=== PATIENT | female | born 1975 | race Caucasian/White ===

== ENCOUNTER 2017-09-08 15:48 | Observation (INO) ==
[2017-09-08] MEDS ORDERED: PROMETHAZINE 25 MG/1 ML VIAL IM STA (17:03)
[2017-09-08] MEDS ORDERED: MEPERIDINE 50 MG/1 ML VIAL IM STA (17:03)
[2017-09-08] MEDS ORDERED: PROMETHAZINE 25 MG/1 ML VIAL ONE (17:27)
[2017-09-08] MEDS ORDERED: MEPERIDINE 25 MG/1 ML VIAL ONE (17:27)
[2017-09-08 18:11] LABS: Basophils # 0.1 10*3/uL (0.0-0.2); Basophils % 0.6 % (0.0-0.8); Eosinophils # 0.1 10*3/uL (0.0-0.87); Eosinophils % 1.3 % (0.00-10.9); Hematocrit 35.1 VOL% (35.7-47.0); Hemoglobin 11.9 GM/DL (12.0-16.0); Immature Granulocytes % 0.9 %; Immature Granulocytes Absolute 0.07 #; Lymphocytes # 2.2 10*3/uL (1.4-4.0); Mean Corpuscular HGB Conc 33.9 GM/DL (32-36); Mean Corpuscular Hemoglobin 29 PG (27-34); Mean Corpuscular Volume 84.6 FL (87-102); Mean Platelet Volume 11.2 FL (9.6-12.0); Monocytes # 0.5 10*3/uL (0.11-0.8); Monocytes % 6.2 % (1.7-12.7); Neutrophils # 5.3 10*3/uL (1.4-7.4); Platelet Count 230 T/CUMM (130-400); Red Blood Count 4.15 MC/CUMM (3.8-5.5); White Blood Count 8.2 T/CUMM (4-12)
[2017-09-08 18:19] LABS: Alanine Aminotransferase 28 U/L (13-56); Alkaline Phosphatase 74 U/L (45-117); Aspartate Amino Transferase 19 U/L (0-37); Bilirubin,Total < 0.39 MG/DL (0.2-1.0); Blood Urea Nitrogen 17 MG/DL (7-18); Calcium 8.4 MG/DL (8.5-10.1); Glucose 87 MG/DL (74-106); Osmolality,Calculated 290.6 MOS/KG (273-304); Potassium 3.8 MMOL/L (3.5-5.1); Sodium 146 MMOL/L (136-145); Total Protein 7.4 G/DL (6.4-8.3)
[2017-09-08] MEDS ORDERED: ceFAZolin 1,000 MG VIAL ONE (19:08)
[2017-09-08 19:14] LABS: PT Patient Result 10.7 SECS; Partial Thromboplastin Time 24.6 SECS (0-40)
[2017-09-08] MEDS ORDERED: PROPOFOL 200 MG/20 ML VIAL IV ONE (20:20)
[2017-09-08] MEDS ORDERED: ACETAMINOPHEN 1,000 MG/100 ML VIAL IV ONE (20:21)
[2017-09-08] MEDS ORDERED: ONDANSETRON 4 MG/2 ML VIAL ONE ×2 (20:21→20:34)
[2017-09-08] MEDS ORDERED: SEVOFLURANE 1 UNIT/15 MINUTE INH ONE (20:21)
[2017-09-08] MEDS ORDERED: KETOROLAC 30 MG/1 ML VIAL ONE (20:21)
[2017-09-08] MEDS ORDERED: PHENYLEPHRINE 1 MG/10 ML SYRINGE IV ONE (20:21)
[2017-09-08] MEDS ORDERED: MIDAZOLAM 2 MG/2 ML VIAL ONE (20:21)
[2017-09-08] MEDS ORDERED: fentaNYL 100 MCG/2 ML VIAL ONE (20:21)
[2017-09-08] MEDS ORDERED: ONDANSETRON 4 MG/2 ML VIAL IV PRN (20:29)
[2017-09-08] MEDS ORDERED: HYDROmorphone 2 MG/1 ML VIAL ONE (20:34)
[2017-09-08] MEDS: HYDROmorphone 2 MG/1 ML VIAL IV PRN ×4 (20:36→20:53)
[2017-09-08] MEDS ORDERED: MAGNESIUM HYDROXIDE SUSP 30 ML UDCUP PO PRN (21:43)
[2017-09-08] MEDS ORDERED: traMADol 50 MG TABLET PO PRN (21:43)
[2017-09-08] MEDS ORDERED: GABAPENTIN 300 MG CAPSULE PO PRN (21:43)
[2017-09-08] MEDS: DEXTROSE 5% NACL 0.45% 1,000 ML IV SCH (22:35)
[2017-09-09] MEDS: ceFAZolin 2,000 MG in PREMIX 1 EACH IV SCH ×2 (03:42→11:45)
[2017-09-09] MEDS ORDERED: ENOXAPARIN 40 MG/0.4 ML SYRINGE SUBCUT SCH (09:00)
[2017-09-09] MEDS: DEXTROSE 5% NACL 0.45% 1,000 ML IV SCH (09:11)
[2017-09-09] MEDS ORDERED: PROMETHAZINE 25 MG TABLET PO PRN (11:34)
[2017-09-09] MEDS ORDERED: PROMETHAZINE 25 MG/1 ML VIAL IM PRN ×2 (11:35→11:40)
[2017-09-09 15:05] VITALS: BP 140/69
== END 2017-09-09 16:28 | disposition home or self-care (01) ==
LOC: N.ED 15:48 → N.EDINP 15:48 → INTOOBSV 18:07 → OBSVTOIN 18:07 → N.EDINP 18:46 → N.3E 21:05
PROVIDERS: ADMIT Orthopaedic Surgery; ATTEND Orthopaedic Surgery